=== PATIENT | female | born 1950 | race Caucasian/White ===

== ENCOUNTER 2017-04-14 08:51 | Emergency (ER) | payer MEDICARE, OTHER ==
[~2017-04-14] VITALS: Ht 157.5 cm; Wt 66.0 kg
[2017-04-14 09:00] VITALS: BP 164/79; PULSE 118; RESP 16; TEMP 99.4; O2SAT 97
[2017-04-14] MEDS ORDERED: LISI-515 PO (09:06)
[2017-04-14] MEDS ORDERED: HYDR12.56 PO (09:06)
--- NOTE | 2017-04-14 09:26 | PD ---
HPI Chief Complaint: Cold / Flu Symptoms Time Seen by Provider: 09:18 Travel History International Travel<30 days: No Contact w/Intl Traveler<30days: No Traveled to known affect area: No History of Present Illness HPI 66-year-old female presents to the emergency department complaining of cough, cold, and flulike symptoms 3 days. Patient states that she is also had multiple episodes of nonbilious vomiting and is having trouble keeping anything down. Denies abdominal pain or diarrhea. Patient states she has felt feverish but has not taken her temperature. States she has clear rhinorrhea, dry cough, and sore throat. Patient denies shortness of breath and chest pain. States that her has similar symptoms and presented to the ED with her. Says that she has used Tylenol with good relief however, the relief does not last long. Patient has a history of hypertension but denies any other medical issues. Pt has not seen her PCP for this issue as she is from out of town. PFSH Past Medical History Hypertension: Yes Tubal Ligation: Yes Social History Alcohol Use: No Tobacco Use: No Substance Use: No Allergies-Medications (Allergen,Severity, Reaction): Coded Allergies: No Known Allergies (Unverified , 04/14/17) Reported Meds & Prescriptions Reported Meds & Active Scripts Active Zofran Odt (Ondansetron Odt) 4 Mg Tab 4 Mg SL Q8HR PRN 5 Days Tessalon Perles (Benzonatate) 100 Mg Cap 100 Mg PO TID PRN 5 Days Reported Hydrochlorothiazide 12.5 Mg Tab 12.5 Mg PO DAILY Lisinopril 20 Mg Tab 20 Mg PO DAILY Review of Systems Except as stated in HPI: all other systems reviewed are Neg Physical Exam Narrative GENERAL: Well-nourished, well-developed patient. SKIN: Focused skin assessment warm/dry. HEAD: Normocephalic. EYES: No scleral icterus. No injection or drainage. THROAT: Mild pharyngeal injection without exudates or tonsillar hypertrophy. Airway is patent. Copious mucus present. NECK: Supple, trachea midline. No JVD or lymphadenopathy. No meningismus CARDIOVASCULAR: Regular rate and rhythm without murmurs, gallops, or rubs. RESPIRATORY: Breath sounds equal bilaterally. No accessory muscle use. GASTROINTESTINAL: Abdomen soft, non-tender, nondistended. MUSCULOSKELETAL: No cyanosis, or edema. BACK: Nontender without obvious deformity. No CVA tenderness. Data Data Last Documented VS Vital Signs Date Time Temp Pulse Resp B/P (MAP) Pulse Ox O2 Delivery O2 Flow Rate FiO2 04/14/17 09:00 99.4 118 16 164/79 (107) 97 Orders Orders Influenzae A/B Antigen (04/14/17 09:18) Ondansetron Odt (Zofran Odt) (04/14/17 09:30) Sodium Chlor 0.9% 1000 Ml Inj (Ns 1000 M (04/14/17 09:30) Ondansetron Inj (Zofran Inj) (04/14/17 09:30) MDM Medical Decision Making Medical Screen Exam Complete: Yes Emergency Medical Condition: Yes Differential Diagnosis Viral syndrome, influenza, upper respiratory infection, allergic rhinitis Narrative Course 66-year-old female presents to the emergency department complaining of cough, cold, and flulike symptoms 3 days. Patient states that she is also had multiple episodes of nonbilious vomiting and is having trouble keeping anything down. Denies abdominal pain or diarrhea. Patient states she has felt feverish but has not taken her temperature. States she has clear rhinorrhea, dry cough, and sore throat. Patient denies shortness of breath and chest pain. States that her has similar symptoms and presented to the ED with her. Says that she has used Tylenol with good relief however, the relief does not last long. Patient has a history of hypertension but denies any other medical issues. Pt has not seen her PCP for this issue as she is from out of town. Vital signs-tachycardia at 117. Physical exam demonstrates a nontoxic-appearing 66-year-old female with a dry cough. Mild pharyngeal injection without tonsillar hypertrophy or exudates. Clear postnasal drip. 1 L normal saline bolus administered with Zofran. Flu Negative. Vital signs improved after 1L NS. Pt feels much better and appreciates the care she has received today. Patient will be discharged with Yazmin Ruffin and Stephenan for her symptoms. Advised patient to return to the emergency room for worsening or persistent symptoms. Encourage adequate fluid intake, proper nutrition. Advised patient to follow up with primary care physician within 2-3 days. Diagnosis Primary Impression: Viral syndrome Referrals: Primary Care Physician Patient Instructions: General Instructions Additional Instructions: Follow up with your primary care physician within 2-3 days. If your symptoms persist or worsen, return to the emergency department. Ensure you have adequate fluid intake. Take zofran and tessalon pearles as prescribed. Scripts Ondansetron Odt (Zofran Odt) 4 Mg Tab 4 MG SL Q8HR Y for Nausea/Vomiting for 5 Days, #15 TAB 0 Refills Prov: Reva Villalobos MD 04/14/17 Benzonatate (Tessalon Perles) 100 Mg Cap 100 MG PO TID Y for COUGH for 5 Days, CAP 0 Refills Prov: Reva Villalobos MD 04/14/17 Disposition: 01 DISCHARGE HOME Condition: Stable Iris Burdick Apr 14, 2017 09:26
[2017-04-14] MEDS ORDERED: ONDANSETRON ODT 4 MG TAB PO ONE (09:30)
[2017-04-14] MEDS ORDERED: SODIUM CHLOR 0.9% 1000 ML INJ 1,000 ML IV ONE (09:30)
[2017-04-14] MEDS ORDERED: ONDANSETRON HCL 4 MG/2 ML VIAL IV PUSH ONE (09:30)
[2017-04-14] MEDS ORDERED: ZOFR4TAB3 SL (09:53)
[2017-04-14] MEDS ORDERED: BENZ100 PO (09:53)
== END 2017-04-14 10:59 | disposition home or self-care (01) ==
LOC: PHEFT 08:51
DX: B34.9 Viral infection, unspecified (principal); I10 Essential (primary) hypertension
CPT/HCPCS: 87804; 96361; 96374; 99284; J2405; J7030